=== PATIENT | female | born 1995 | race Caucasian/White ===

== ENCOUNTER 2022-01-28 14:27 | Observation (INO) | payer OTHER, SELFPAY ==
[2022-01-28] VITALS (8 sets, daily range): BP systolic 115–123; BP diastolic 61–62; PULSE 74–91; TEMP 36.8; O2SAT 98–99; BMI 34.5
--- NOTE | 2022-01-28 14:55 | OBADM ---
This patient, Nneka A Case, admitted to the [facility] for observation. Patient/family oriented to hospital policies and general routines including ID bracelet, bed and alarms, visiting hours, pain management, procedures, bathroom and other care routines, personal items, smoking policy, room service/diet, and visiting hours. Patient/Family are encouraged to report perceived risks to care and to ask questions if they do not understand what they are told or what they should do.
[2022-01-28 15:32] LABS: Appearance Urine Clear (Clear); Bilirubin Urine Negative (Negative); Blood Urine Negative (Negative); Color Urine Yellow (Yellow); Glucose Urine UA Negative (Negative); Ketones Urine Negative (Negative); Leukocyte Esterase Ur Negative LEU/UL (Negative); Nitrate Urine Negative (Negative); Protein Urine Negative (Negative); Specific Grav Ur 1.015 (1.001-1.035); Urobilinogen Urine 0.2 mg/dL (<2.0)
[2022-01-28 15:50] LABS: Add Urine Microscopic? NO
--- NOTE | 2022-01-31 13:38 | P.PNOB_ITS ---
OB - Triage/Final Diagnosis Visit Information Reason for evaluation: threatened labor Comments/Additional reasons for admission: I have assessed the risk for this patient, Nneka A Case, and determined that she would benefit from observation care. Evaluation Laboratory results: Laboratory Tests 01/28/22 15:25 Urine Color Yellow Urine Appearance Clear Urine pH 7.0 Ur Specific [place] 1.015 Urine Protein Negative Urine Glucose (UA) Negative Urine Ketones Negative Ur Blood (Man) Negative Urine Nitrate Negative Urine Bilirubin Negative Urine Urobilinogen 0.2 Leukocyte Esterase Rfl Negative
== END 2022-01-28 17:05 | disposition home or self-care (01) ==
PROVIDERS: Admitting Provider Obstetrics & Gynecology; PCP Hospitalist; Visit Provider Obstetrics & Gynecology
DX: O47.02 False labor before 37 completed weeks of gestation, second trimester (principal); Z3A.20 20 weeks gestation of pregnancy
CPT/HCPCS: 81003; G0378; G0379

== ENCOUNTER 2022-04-29 11:21 | Outpatient (RCR) | payer OTHER, SELFPAY ==
[2022-04-29 12:13] VITALS: PULSE 95
== END 2022-07-28 23:59 | disposition home or self-care (01) ==
LOC: ANHOBOP 11:21
PROVIDERS: PCP Hospitalist; Visit Provider Obstetrics & Gynecology
DX: O36.8130 Decreased fetal movements, third trimester, not applicable or unspecified (principal); Z3A.33 33 weeks gestation of pregnancy
CPT/HCPCS: 59025

== ENCOUNTER 2022-05-23 13:02 | Observation (INO) | payer OTHER, SELFPAY ==
[2022-05-23 13:25] VITALS: BMI 38.0
--- NOTE | 2022-05-23 13:25 | OBADM ---
This patient, Nneka A Case, admitted to the OB room 115 for observation for cramping and back pain. Patient/family oriented to hospital policies and general routines including ID bracelet, bed and alarms, visiting hours, pain management, procedures, bathroom and other care routines, personal items, smoking policy, room service/diet, and visiting hours. Patient/Family are encouraged to report perceived risks to care and to ask questions if they do not understand what they are told or what they should do. See OBIX for further documentation.
[2022-05-23 14:00] VITALS: TEMP 36.4
--- NOTE | 2022-05-25 09:25 | PM.OBTRLD ---
OB - Triage/Final Diagnosis Visit Information Reason for evaluation: threatened labor Comments/Additional reasons for admission: I have assessed the risk for this patient, Nneka A Case, and determined that she would benefit from observation care.
== END 2022-05-23 14:36 | disposition home or self-care (01) ==
LOC: ANHOBPP 14:31 → ANHLDR 14:40
PROVIDERS: Admitting Provider Obstetrics & Gynecology; PCP Hospitalist; Visit Provider Obstetrics & Gynecology
DX: O47.03 False labor before 37 completed weeks of gestation, third trimester (principal); Z3A.36 36 weeks gestation of pregnancy
CPT/HCPCS: G0378; G0379

== ENCOUNTER 2022-06-07 03:08 | Inpatient (IN) | payer OTHER, SELFPAY ==
[2022-06-07] VITALS (197 sets, daily range): BP systolic 66–177; BP diastolic 20–147; PULSE 32–131; RESP 16; TEMP 36.2–36.9; O2SAT 89–100; BMI 38.7
[2022-06-07 03:38] LABS: Basophils Percent Auto 0.3 % (0.2-1.2); Eosinophils Absolute Auto 0.1 K/mm3 (0-0.3); Eosinophils Percent Auto 0.7 % (0-4.4); Hematocrit 33.7 % (37.0-47.0); Hemoglobin 11.3 g/dL (12.0-15.0); Immature Granulocyte Absolute 0.04 K/mm3 (0.00-0.031); Immature Granulocyte Percent A 0.4 % (0-0.5); Lymphocytes Absolute Auto 2.04 K/mm3 (0.9-3.2); Lymphocytes Percent Auto 18.2 % (18.3-44.2); Mean Corpuscular HGB Conc 33.5 g/dl (32-36); Mean Corpuscular Hemoglobin 28.8 pg (26-34); Mean Platelet Volume 10.3 fl (7.4-10.4); Monocytes Absolute Auto 0.8 K/mm3 (0.1-0.6); Monocytes Percent Auto 7.2 % (2.6-8.5); Neutrophils Absolute Auto 8.2 K/mm3 (1.3-6.7); Neutrophils Percent Auto 73.2 % (45.5-73.1); Platelet Count Result 256 k/mm3 (150-375); Red Blood Count 3.92 M/mm3 (4.2-5.4); Red Cell Distribution Width 13.1 % (11.5-14.5); White Blood Count 11.2 K/mm3 (4.5-10.0)
[2022-06-07] MEDS: LACTATED RINGERS 1,000 ML 125 ML IV CONT ×4 (03:53→12:15)
[2022-06-07] MEDS: OXYTOCIN 30 UNITS/NS 500 ML 30 UNITS/500 ML BAG 6 UNITS IV CONT (04:30)
--- NOTE | 2022-06-07 06:35 | PM.IMHP ---
H&P: HPI History of Present Illness Date/Time: 06/07/22 06:35 Chief Complaint: Labor Narrative: this is a 27-year-old 1 para 0 whose EDC is 06/14/2022 by last menstrual. Who is admitted with active labor. Her has been uncomplicated thus far. She is negative for group B strep PMFSH Family History Family History Mother Hypertension Social History Social History Smoking status: Never smoker Substance use: never Lack of Transportation: No Lack of Food: Never True Current Housing: I Have Housing Concerned About Future Housing: No Difficulty Paying Gas/Electric Bills: No Difficulty Paying for Meds: No Currently Unemployed: No Education: Associate Degree Difficulty w/ Childcare or Family Care: No Spiritual care concerns: No Meds Home Medications and Allergies Home Medications Medication Instructions Recorded Confirmed Type vit no.95-ferrous 1 tablet PO DAILY 01/28/22 06/07/22 History fumarate 28 mg-folic acid 800 mcg tablet () famotidine 20 mg tablet (Pepcid) 20 mg PO DAILY 05/23/22 06/07/22 History Allergies Allergy/AdvReac Type Severity Reaction Status Date / Time No Known Allergies Allergy Verified 06/07/22 03:45 Vital Signs Vital Signs - 24 hr 06/07/22 03:20 06/07/22 04:01 06/07/22 04:06 Pulse Rate 97 Blood Pressure 132/88 Pulse Oximetry 100 100 99 06/07/22 04:11 06/07/22 04:16 06/07/22 04:20 Pulse Rate Blood Pressure Pulse Oximetry 100 99 99 06/07/22 04:25 06/07/22 04:34 06/07/22 04:35 Pulse Rate 78 Blood Pressure 123/86 Pulse Oximetry 100 100 06/07/22 04:39 06/07/22 04:44 06/07/22 04:49 Pulse Rate Blood Pressure Pulse Oximetry 100 100 100 06/07/22 04:54 06/07/22 04:59 06/07/22 05:01 Pulse Rate 84 Blood Pressure 127/70 Pulse Oximetry 99 100 06/07/22 05:04 06/07/22 05:15 06/07/22 05:20 Pulse Rate Blood Pressure Pulse Oximetry 100 100 100 06/07/22 05:25 06/07/22 05:30 06/07/22 05:31 Pulse Rate 79 Blood Pressure 123/76 Pulse Oximetry 100 100 06/07/22 05:35 06/07/22 05:40 06/07/22 05:45 Pulse Rate Blood Pressure Pulse Oximetry 100 100 100 06/07/22 05:50 06/07/22 05:55 06/07/22 06:00 Pulse Rate Blood Pressure Pulse Oximetry 99 100 98 06/07/22 06:01 06/07/22 06:05 06/07/22 06:10 Pulse Rate 82 Blood Pressure 125/80 Pulse Oximetry 100 100 06/07/22 06:15 06/07/22 06:20 06/07/22 06:23 Pulse Rate Blood Pressure Pulse Oximetry 100 100 100 06/07/22 06:24 06/07/22 06:29 Pulse Rate Blood Pressure Pulse Oximetry 100 100 Exam Const: General: cooperative, healthy appearing, comfortable and well groomed Orientation/consciousness: oriented to person, oriented to place and oriented to time HENMT: Head: normal to inspection Resp: Effort & Inspection: normal respiratory effort Cardio: Rate: regular rate Rhythm: regular rhythm Heart sounds: S1 normal heart sound present and S2 normal heart sound present GI: Inspection: normal to inspection ( soft gravid uterus with contractions every 3minutes) : External Female Exam: normal external appearance Speculum Exam - Vagina: normal appearance of the vagina Speculum Exam - Cervix: normal appearance of the cervix ( cervix 3/90/2. AROM clear. FHTs reassuring) H&P: Results Labs Labs: Short CBC 06/07/22 Range/Units 03:21 WBC 11.2 H (4.5-10.0) K/mm3 Hgb 11.3 L (12.0-15.0) g/dL Hct 33.7 L (37.0-47.0) % Plt Count 256 (150-375) k/mm3 Assessment and Plan Assessment and plan (1) Term : Code(s): Z34.90 - Encounter for supervision of normal , unspecified, unspecified trimester Status: Acute Plan spontaneous vaginal delivery expected. She has an epidural candidate
[2022-06-07] MEDS: fentaNYL CITRATE INJ (*CRX) 100 MCG/2 ML VIAL 50 MCG IV PUSH (07:26)
[2022-06-07] MEDS: PHENYLEPHRINE 1,000 MCG/10 ML SYRINGE 100 MCG IV PUSH (07:58)
--- NOTE | 2022-06-07 08:07 | WPDANESEPPF ---
Anes - Initial Pre Proc Eval Date/Time: 06/07/22 08:07 Surgeon: Cain Larson MD Pre Op Diagnosis: Labor Patient Data Age: 27 Gender: F Height: 1.68 m Weight: 109 kg Last Vital Signs Pulse 70 06/07/22 08:07 BP 102/67 06/07/22 08:07 Pulse Ox 98 06/07/22 08:07 Allergies Allergy/AdvReac Type Severity Reaction Status Date / Time No Known Allergies Allergy Verified 06/07/22 03:45 Home Medications Medication Instructions Recorded Confirmed Type vit no.95-ferrous 1 tablet PO DAILY 01/28/22 06/07/22 History fumarate 28 mg-folic acid 800 mcg tablet () famotidine 20 mg tablet (Pepcid) 20 mg PO DAILY 05/23/22 06/07/22 History Laboratory Tests 06/07/22 06/07/22 06/07/22 03:21 03:21 03:21 WBC 11.2 K/mm3 H K/mm3 (4.5-10.0) RBC 3.92 M/mm3 L M/mm3 (4.2-5.4) Hgb 11.3 g/dL L g/dL (12.0-15.0) Hct 33.7 % L % (37.0-47.0) MCV 86.0 fl fl (80-100) MCH 28.8 pg pg (26-34) MCHC 33.5 g/dl g/dl (32-36) RDW 13.1 % % (11.5-14.5) Plt Count 256 k/mm3 k/mm3 (150-375) MPV 10.3 fl fl (7.4-10.4) Immature Gran % (Auto) 0.4 % % (0-0.5) Neut % (Auto) 73.2 % H % (45.5-73.1) Lymph % (Auto) 18.2 % L % (18.3-44.2) Harrison % (Auto) 7.2 % % (2.6-8.5) Eos % (Auto) 0.7 % % (0-4.4) Baso % (Auto) 0.3 % % (0.2-1.2) Lymph # (Auto) 2.04 K/mm3 K/mm3 (0.9-3.2) Harrison # (Auto) 0.8 K/mm3 H K/mm3 (0.1-0.6) Eos # (Auto) 0.1 K/mm3 K/mm3 (0-0.3) Baso # (Auto) 0.0 K/mm3 K/mm3 (0.0-0.1) Abs Immat Gran (auto) 0.04 K/mm3 H K/mm3 (0.00-0.031) Absolute Neuts (auto) 8.2 K/mm3 H K/mm3 (1.3-6.7) Absolute Nucleated RBC 0.0 K/mm3 K/mm3 (0.0-0.012) Nucleated RBC % 0.0 % % (0.0-0.2) RPR Pending Blood Type B Positive Antibody Screen Negative Patient hx anesthesia problems: none Family hx anesthesia problems: none Results Review: All pre-operative results and documents have been reviewed as part of the pre-operative evaluation. PMFSH Family History Family History Mother Hypertension Social History Social History Smoking status: Never smoker Substance use: never Lack of Transportation: No Lack of Food: Never True Current Housing: I Have Housing Concerned About Future Housing: No Difficulty Paying Gas/Electric Bills: No Difficulty Paying for Meds: No Currently Unemployed: No Education: Associate Degree Difficulty w/ Childcare or Family Care: No Spiritual care concerns: No Anes - Eval Final PreProcedure Day of Procedure 06/07/22 08:07 Patient weight: obese Neurological: alert and oriented Emergent: no Anesthetic plan: proceed Anesthesia type and monitoring: regional epidural and standard monitoring Results Review: All pre-operative results and documents have been reviewed as part of the pre-operative evaluation. Informed Consent: The patient's anesthetic plan and its attendant risks and benefits were discussed with the patient/family/POA. Questions were solicited and answers provided to the satisfaction of the patient/family/POA.
[2022-06-07] MEDS: ePHEDrine sulfate INJ 50 MG/ML AMPUL IV PUSH (08:13)
--- NOTE | 2022-06-07 12:02 | PM.OBPNLAB ---
Pain Control Date/time seen: 06/07/22 12:02 Pain control: tolerating well and epidural Pelvic Exam Dilation (cm): 7 Effacement (%): 100 station: -2 Amniotic membrane status: Leaking Contractions Monitor mode: Internal Contraction frequency: 3
--- NOTE | 2022-06-07 14:24 | PM.OBPNLAB ---
Pain Control Date/time seen: 06/07/22 14:24 Pain control: tolerating well and epidural Pelvic Exam Dilation (cm): 10 Effacement (%): 100 station: -2 Amniotic membrane status: Leaking Contractions Monitor mode: Internal Contraction frequency: 3
[2022-06-07 15:56] LABS: Rapid Plasma Reagin Non-Reactive (NonReactive)
--- NOTE | 2022-06-07 16:14 | PM.OBPRVD ---
OB - Delivery Note Procedure Delivery date: 06/07/22 Events: Elective Induction of Labor Induction method: AROM Delivery monitor: External FHT and Internal Uterine Route of delivery: Episiotomy description: None Laceration Description: Perineal - 2nd Degree Delivery repair: vicryl Specimen: No Quantitative Blood Loss (ml): 160 Anesthesia type: Epidural Disposition: Floor [place] Baby Date of : 06/07/22 Time of : 16:00 Weeks of gestation at delivery: 39 gender: Female presentation: vertex position: Right Occiput Anterior Placenta delivery description: Spontaneous Cord Vessel Description: 3 Vessels, Nuchal Cord, Loose and Delayed Cord Clamping score one minute: 9 score five minutes: 9
[2022-06-07] MEDS: OXYTOCIN 30 UNITS/NS 500 ML 30 UNITS/500 ML BAG 125 UNITS IV CONT (16:32)
[2022-06-07] MEDS: WITCH HAZEL 40 PADS 1 PAD TOPICAL (18:45)
[2022-06-07] MEDS: BENZOCAINE 20% AER SPR (*SP) 56 GM CAN 1 SPRAY TOPICAL (18:45)
[2022-06-07] MEDS: ACETAMINOPHEN 325 MG TABLET 650 MG PO (20:14)
[2022-06-08] MEDS: ACETAMINOPHEN 325 MG TABLET 650 MG PO ×3 (05:16→22:17)
[2022-06-08] MEDS: IBUPROFEN 600 MG TABLET PO ×3 (05:16→22:17)
[2022-06-08 05:28] LABS: Hematocrit 30.1 % (37.0-47.0); Hemoglobin 9.7 g/dL (12.0-15.0)
--- NOTE | 2022-06-08 07:07 | P.PNOB_ITS ---
OB - PN: Subj Subjective Date/time seen: 06/08/22 07:07 Patient comments: no complaints and pain well controlled baby status: doing well OB - PN: Obj Data Labs 06/08/22 05:12 Labs: Laboratory Results - last 24 hr 06/07/22 06/08/22 03:21 05:12 Hgb 9.7 L Hct 30.1 L RPR Non-reactive OB - PN A/P Plan day: 1 Plan: routine care Time Spent With Patient Time: Total time spent is greater than 50% in coordination of care (as documented) at patient's floor/unit and/or counseling patient: Time with patient: less than 15 minutes Exam Const: General: cooperative, healthy appearing and comfortable Nutritional Appearance: average body habitus Orientation/consciousness: oriented to person, oriented to place and oriented to time Resp: Effort & Inspection: normal respiratory effort Cardio: Rate: regular rate Rhythm: regular rhythm Heart sounds: S1 no rmal heart sound present and S2 normal heart sound present GI: Inspection: normal to inspection
[2022-06-08 08:00] VITALS: BP 110/68; PULSE 79; RESP 16; TEMP 36.9; O2SAT 99
[2022-06-08] MEDS: MULTIVIT/MIN/PREN/FOL AC/IRON TABLET 1 TAB PO (09:02)
[2022-06-08] MEDS: DOCUSATE SODIUM 100 MG CAPSULE PO ×2 (09:02→16:27)
[2022-06-08] MEDS: POLYSACCHARIDE IRON COMPLEX 150 MG CAPSULE PO ×2 (09:48→16:27)
[2022-06-08 12:14] VITALS: BP 120/75; PULSE 85; RESP 16; TEMP 37; O2SAT 97
--- NOTE | 2022-06-08 15:00 | PM.DS ---
DS: Admitting Diagnosis Discharge Date 06/09/2022 Admitting Diagnosis term DS: Discharge Diagnosis Discharge Diagnosis (1) Term : Code(s): Z34.90 - Encounter for supervision of normal , unspecified, unspecified trimester Status: Acute DS: Summary Hospital Course Reason for hospitalization: patient was admitted for induction of labor at term Hospital Course: she underwent successful spontaneous vaginal delivery with epidural anesthesia. Her hospital course was unremarkable. She room. She was voiding without difficulty, ambulating, breast-feeding, generally without complaints. Time Spent with Patient Time attestation: Total time spent providing and/or coordinating discharge services: Exam Const: General: cooperative, healthy appearing and comfortable Nutritional Appearance: average body habitus Orientation/consciousness: oriented to person, oriented to place and oriented to time Resp: Effort & Inspection: normal respiratory effort Cardio: Rate: regular rate Rhythm: regular rhythm Heart sounds: S1 normal heart sound present and S2 normal heart sound present GI: Inspection: normal to inspection DS: Data Data Completed and Pending Labs on day of discharge: Labs from last 24 hours 06/08/22 06/07/22 05:12 03:21 Hgb 9.7 L Hct 30.1 L RPR Non-reactive Discharge Plan Discharge Attending physician on discharge: Cain Johsnon Discharging Clinician: Cain Johnson Patient Disposition: Home, Self-Care Activity: may shower, no straining and pelvic rest Diet: heart healthy Wound Care Instructions: follow printed instructions Patient Instructions: Antibiotic Form Stand Alone Forms: General Discharge Information Follow-up/Referrals: Cain Johnson MD [Physician] - Discharge Medications: Continued PNV cmb#95-ferrous fumarate-FA [] 28 mg iron- 800 mcg Tablet 1 tablet PO DAILY famotidine [Pepcid] 20 mg Tablet 20 mg PO DAILY Date of admission: 06/07/22 03:08 Primary Care Provider: SonnyDerek Admitting Provider: Cain Johnson Attending physician on admission: Cain Johnson Condition: Stable
--- NOTE | 2022-06-08 17:30 | PC.NURSE ---
[id number] Introductions were made, then consulted with patient to assess needs related to . Mother led the conversation with her?plans to feed?her infant and the?experience so far. Resources provided for inpatient and outpatient services using a mom/baby guide. Mother verbalizes she is able to independently latch with appropriate positioning/alignment. She denies any nipple discomfort and is responsively . Infant is currently meeting outcomes for weight, output, jaundice and feeding frequencies of 8-12 times in 24 hours. Questions were answered and discussed. Mother declines any additional assistance/education at this time. Mother is encouraged to call for assistance if her doesn?t latch or there is discomfort with latching. Mother voiced understanding of information shared and mom and baby guide reviewed for additional resource information. Reported to the primary RN.
[2022-06-08 20:05] VITALS: BP 133/78; PULSE 85; RESP 18; TEMP 37; O2SAT 98
--- NOTE | 2022-06-09 07:15 | PM.OBPNVD ---
OB - PN: Subj Subjective Date/time seen: 06/09/22 07:15 Patient comments: no complaints and pain well controlled baby status: doing well OB - PN: Obj Data Labs 06/08/22 05:12 OB - PN A/P Plan day: 2 Plan: routine care, discharge home and follow up 6 weeks Time Spent With Patient Time: Total time spent is greater than 50% in coordination of care (as documented) at patient's floor/unit and/or counseling patient: Time with patient: less than 15 minutes Exam Const: General: cooperative, healthy appearing and comfortable Nutritional Appearance: average body habitus Orientation/consciousness: oriented to person, oriented to place and oriented to time HENMT: Head: normal to inspection Resp: Effort & Inspection: normal respiratory effort GI: Inspection: normal to inspection (fundus firm)
[2022-06-09 08:10] VITALS: BP 118/74; PULSE 80; RESP 18; TEMP 36.4; O2SAT 100
[2022-06-09] MEDS: ACETAMINOPHEN 325 MG TABLET 650 MG PO (09:23)
[2022-06-09] MEDS: IBUPROFEN 600 MG TABLET PO (09:24)
[2022-06-09] MEDS: POLYSACCHARIDE IRON COMPLEX 150 MG CAPSULE PO (09:24)
[2022-06-09] MEDS: MULTIVIT/MIN/PREN/FOL AC/IRON TABLET 1 TAB PO (09:24)
[2022-06-11 13:59] VITALS: BP 120/71; PULSE 70; RESP 20; TEMP 37; O2SAT 99
== END 2022-06-09 12:52 | disposition home or self-care (01) | DRG 807 ==
LOC: ANHLDR 03:11 → ANHOB2 19:43
PROVIDERS: Admitting Provider Obstetrics & Gynecology; PCP Hospitalist; Visit Provider Obstetrics & Gynecology
DX: O69.81X0 Labor and delivery complicated by cord around neck, without compression, not applicable or unspecified (principal); Z37.0 Single live birth; O70.1 Second degree perineal laceration during delivery; Z3A.39 39 weeks gestation of pregnancy
CPT/HCPCS: 36415; 85014; 85018; 85025; 86592; 86850; 86900; 86901; A9270; J2370; J2590; J2795; J3010; J7120

== ENCOUNTER 2023-04-17 00:17 | Emergency (ER) | payer SELFPAY ==
--- NOTE | ~2023-04-17 | XR_ITS ---
Clinical Indication: Chest pain PA and lateral views of the chest: Comparison: 06/21/2021 Findings: The lungs are clear, without evidence of focal consolidation or pleural effusion. Cardiome diastinal silhouette is within normal limits. Bones and soft tissues are unremarkable. Impression: Normal chest. Reviewed, dictated and finalized at location . HANGER Impression: Normal chest.
[2023-04-17 00:20] VITALS: BP 130/64; PULSE 65; RESP 20; TEMP 37.1; O2SAT 100
--- NOTE | 2023-04-17 00:20 | ECG_ITS ---
Measurements Intervals [place] Rate: 65 P: 60 WY: 162 QRS: 85 QRSD: 82 T: 49 QT: 380 QTc: 395 Interpretive Statements SINUS RHYTHM WITH SINUS ARRHYTHMIA NORMAL ECG NO PREVIOUS ECG AVAILABLE FOR COMPARISON Electronically Signed On 04-17-2023 6:53:01 [employer] by Adis Delgado D.O.
[2023-04-17 00:37] LABS: Basophils Percent Auto 0.3 % (0.2-1.2); Eosinophils Absolute Auto 0.2 K/mm3 (0-0.3); Eosinophils Percent Auto 1.7 % (0-4.4); Hematocrit 42.4 % (37.0-47.0); Hemoglobin 13.8 g/dL (12.0-15.0); Immature Granulocyte Absolute 0.03 K/mm3 (0.00-0.031); Immature Granulocyte Percent A 0.3 % (0-0.5); Lymphocytes Absolute Auto 1.84 K/mm3 (0.9-3.2); Mean Corpuscular HGB Conc 32.5 g/dl (32-36); Mean Corpuscular Hemoglobin 30.3 pg (26-34); Mean Platelet Volume 10.5 fl (7.4-10.4); Monocytes Absolute Auto 0.7 K/mm3 (0.1-0.6); Monocytes Percent Auto 7.2 % (2.6-8.5); Neutrophils Absolute Auto 6.5 K/mm3 (1.3-6.7); Neutrophils Percent Auto 70.5 % (45.5-73.1); Platelet Count Result 222 k/mm3 (150-375); Red Blood Count 4.56 M/mm3 (4.2-5.4); White Blood Count 9.2 K/mm3 (4.5-10.0)
[2023-04-17 00:48] LABS: Alanine Aminotransferase 22 U/L (6-35); Albumin Level 4.1 g/dL (3.5-5.1); Alkaline Phosphatase 53 U/L (38-126); Anion Gap 4 mmol/L (8-16); Aspartate Amino Transferase 29 U/L (14-36); Bilirubin,Total 0.5 mg/dL (0.2-1.3); Blood Urea Nitrogen 19 mg/dL (7-17); Calcium 9.2 mg/dL (8.4-10.2); Carbon Dioxide 30 mmol/L (22-30); Chloride 105 mmol/L (98-107); Estimated Glomerular Filt Rate > 60; Glucose 97 mg/dL (65-110); Lipase 106 U/L (23-300); Potassium 3.6 mmol/L (3.4-5.0); Sodium 139 mmol/L (137-145)
[2023-04-17 00:52] LABS: Prothrombin Time 13.8 Seconds (11.1-14.7)
[2023-04-17 00:54] LABS: Partial Thromboplastin Time 33.5 SECONDS (22.3-36.8)
[2023-04-17 01:00] LABS: Troponin I < 0.012 ng/mL (0.000-0.034)
--- NOTE | 2023-04-17 02:02 | PC.NURSE ---
pt. to desk stating they are going home. pt. NAD upon departure.
== END 2023-04-17 02:46 | disposition left against medical advice (07) ==
PROVIDERS: Emergency Provider Emergency Medicine; PCP Hospitalist
DX: R07.2 Precordial pain (principal)
CPT/HCPCS: 36415; 71046; 80053; 83690; 84484; 85025; 85610; 85730; 93005; 99199

== ENCOUNTER 2024-02-12 10:20 | Outpatient (CLI) | payer OTHER, SELFPAY ==
--- NOTE | ~2024-02-12 | XR_ITS ---
Clinical Indication: Cough PA and lateral views of the chest: Comparison: 04/29/2023 Findings: The lungs are clear, without evidence of focal consolidation or pleural effusion. Cardiome diastinal silhouette is within normal limits. Bones and soft tissues are unremarkable. Impression: Normal chest. Reviewed, dictated and finalized at location . Impression: Normal chest.
== END 2024-02-12 10:21 | disposition home or self-care (01) ==
LOC: ANHIMG 10:27
PROVIDERS: PCP Hospitalist; Visit Provider Internal Medicine
DX: R05.3 Chronic cough (principal)
CPT/HCPCS: 71046

== ENCOUNTER 2024-02-14 10:19 | Outpatient (CLI) | payer OTHER, SELFPAY ==
[2024-02-14 10:39] LABS: Hematocrit 43.4 % (37.0-47.0); Hemoglobin 14.8 g/dL (12.0-15.0); Mean Corpuscular HGB Conc 34.1 g/dl (32-36); Mean Corpuscular Hemoglobin 32.5 pg (26-34); Mean Corpuscular Volume 95.4 fl (80-100); Mean Platelet Volume 9.6 fl (7.4-10.4); Platelet Count Result 204 k/mm3 (150-375); Red Blood Count 4.55 M/mm3 (4.2-5.4); Red Cell Distribution Width 12.3 % (11.5-14.5)
[2024-02-14 10:51] LABS: Albumin Level 4.2 g/dL (3.5-5.1); Anion Gap 10 mmol/L (4-12); Blood Urea Nitrogen 17 mg/dL (7-17); Calcium 9.1 mg/dL (8.4-10.2); Carbon Dioxide 28 mmol/L (22-30); Chloride 100 mmol/L (98-107); Estimated Glomerular Filt Rate > 60; Glucose 87 mg/dL (65-110); Potassium 4.3 mmol/L (3.4-5.0); Sodium 138 mmol/L (137-145)
[2024-02-14 11:00] LABS: Prealbumin 24.4 mg/dL (17.6-36.0)
[2024-02-14 11:05] LABS: Iron 81 ug/dL (37-170)
[2024-02-17 11:49] LABS: Vitamin B1 16 nmol/L (8-30)
== END 2024-02-14 10:20 | disposition home or self-care (01) ==
LOC: ANHLAB 10:21
PROVIDERS: PCP Hospitalist; Visit Provider Surgery Plastic and Reconstructive Surgery
DX: R63.4 Abnormal weight loss (principal)
CPT/HCPCS: 36415; 80048; 82040; 83540; 84134; 84425; 85027

== ENCOUNTER 2024-02-25 00:46 | Day surgery (SDC) | payer OTHER, SELFPAY ==
[2024-02-17 10:29] VITALS: BMI 26.6
--- NOTE | 2024-02-17 10:30 | PC.NURSE ---
Report to the Outpatient Waiting Room, entrance under the green pavilion located off [facility], at time _0700_ on date _[id number]_. Planned Procedure Time: _0900_.? Time changes happen often and if your time is changed the preop area will call you the afternoon before. - You and your visitor will be asked to self-screen and do not enter if you have any COVID symptoms. Please call surgeon if you need to reschedule. - A mask is optional within the hospital at this time. Patients may have clear liquids (water, carbonated beverages, clear teas, apple juice) until 3 hours prior to surgery with a maximum of 20 ounces. - No food from midnight until time of surgery and no smoking Take only the following medications with a SIP of water on the morning of surgery: None DO NOT STOP ANY OF YOUR OTHER PRESCRIPTION MEDICATIONS PRIOR TO SURGERY EXCEPT THE FOLLOWING Medications to discontinue per physician ____None Please no make-up, nail welsh, hairspray, perfume, deodorant, or body powder the day of surgery.? No jewelry (including any body piercings) or valuables the day of surgery, leave them at home.? Please take a shower or bath the night before, or the morning of, surgery with an antibacterial soap.? Wear comfortable, loose fitting clothing.? - Jewelry must be removed prior to entering the operating room.? Rings and piercings that are not removed may be cut off. - The hospital will not accept responsibility for valuables.? - Please leave all valuables, including medications, at home the day of surgery. If you are going home after surgery, a licensed bulk delivery driver must drive you home.? - NO public transportation without another adult if you receive anesthesia. - We recommend that an adult stay with you for 24 hours following discharge. - We also recommend that you do not drive, make important decision, drink alcoholic beverages, or take any drugs that were not prescribed by your health care provider for at least 24 hours after your discharge time. Follow any additional instructions given to you from your surgeon. Telephone instructions given to __Patricia___and asked if any additional questions and then verbalized understanding. Patient advised to call surgeon office or pre surgery nurse liaison [phone] if any additional questions.
[2024-02-25] VITALS (10 sets, daily range): BP systolic 105–125; BP diastolic 59–80; PULSE 50–97; RESP 13–20; TEMP 36.1–36.8; O2SAT 92–100
[2024-02-25] MEDS: LACTATED RINGERS 1,000 ML 30 ML IV CONT ×3 (08:02→12:40)
[2024-02-25 08:28] LABS: BEDSIDEPREGUCG Negative (Negative)
--- NOTE | 2024-02-25 08:39 | WPDHPUPDATE1 ---
History and Physical Update Update Date/Time: 02/25/24 08:39 History and Physical has been reviewed, including an updated exam of the patient. There are NO changes in the patient's condition. Risks, benefits, and alternatives have been discussed and questions answered. Patient agrees to proceed with procedure.
--- NOTE | 2024-02-25 09:02 | P.PNAN_ITS ---
Anes - Eval Pre Procedure Procedure: Operation Date: 02/25/24 09:00 Proposed Procedures p Bilateral Breast Mastopexy with GalaFlex - Gunnar Manzanares MD Date/Time: 02/25/24 09:02 Pre Op Diagnosis: breast ptosis Patient Data Age: 28 Gender: F Height: 1.7 m Weight: 77.3 kg Last Vital Signs Temp 36.1 C L 02/25/24 08:00 Pulse 78 02/25/24 08:00 Resp 16 02/25/24 08:00 BP 125/73 02/25/24 08:00 Pulse Ox 97 02/25/24 08:00 O2 Del Method Room Air 02/25/24 08:00 Allergies Allergy/AdvReac Type Severity Reaction Status Date / Time No Known Allergies Allergy Verified 02/25/24 08:19 Home Medications Medication Instructions Recorded Confirmed Type No Home Medications 02/17/24 02/25/24 History Laboratory Tests 02/25/24 08:00 POC Urine HCG, Qual Negative (Negative) : patient denies Patient hx anesthesia problems: none Family hx anesthesia problems: none Results Review: All pre-operative results and documents have been reviewed as part of the pre- operative evaluation. PMFSH Family History Family History Mother Hypertension Social History Social History Smoking status: Never smoker Alcohol intake: current Substance use: never Lack of Transportation: No Lack of Food: Never True Current Housing: I Have Housing Concerned About Future Housing: No Difficulty Paying Gas/Electric Bills: No Difficulty Paying for Meds: No Currently Unemployed: No Education: Associate Degree Difficulty w/ Childcare or Family Care: No Living arrangements: with family Spiritual care concerns: No Exam Day of Procedure 02/25/24 09:02 Patient weight: normal Heart: regular rate and rhythm Lungs: clear to auscultation Airway: Mallampati scale class 1 Neurological: alert and oriented
--- NOTE | 2024-02-25 09:04 | P.OP_ITS ---
Procedure Note - Detailed Date of Procedure 02/25/24 Pre-op Diagnosis breast ptosis Post-op Diagnosis Same Procedure Performed Bilateral Mastopexy with Galaflex Surgeon Gunnar Manzanares MD Anesthesia General Findings Inverted T Superior medial pedicle Galaflex REF# [id number] Lot# [id number] Description of Procedure She is here today for bilateral breast mastopexy. Previously and again today the risks, benefits, alternatives were discussed in extensive detail. I wanted her to be very realistic about the risks involved as well as expectations. She understands how her history of hidradentis could complicate this which was outlined in detail. She states she is willing to accept these risks and would like to proceed. We discussed aftercare and what to monitor for. Made sure answered all of her questions to her satisfaction today and consent was obtained. Marked in the preoperative holding area with their verification. The patient was taken to the operating room placed supine on the operating table. Anesthesia was provided by anesthesiology. A surgical time-out was taken. She was prepped and draped in a standard sterile fashion. Eleven blade was utilized to make a stab incision and infiltrated with low volume tumescent solution. The breast was tailor tacked into place. I tailor tacked the breast into position. Placed her in a sitting position. Verified the nipple-areolar location based on preoperative planning as well as intraoperative observations and measurements in full agreement. She was placed supine. I de-epithelialized the pedicle. I then de-epithelialized the inferior breast tissue to create an autoaugmentation flap based on intercostal district administrative assistant. I elevated medial and lateral tissue flaps as well for planned closure. The autoaugmentation flap was sutured to the chest wall with 2-0 PDS. Galaflex was soaking in a betadine solution on the back table. Trimmed and sutured into place with 2-0 Vicryl. I closed along the IMF with 2-0 Stratafix. Along the vertical with 2-0 PDS. I closed around the Michael with 3-0 strata fix. 3-0 Monocryl along the vertical. 3-0 Stratafix along the IMF. I finally closed everything with running subcuticular 4-0 Monocryl and tissue glue. Fluffs and surgical bra were placed. Estimated Blood Loss 50 Drains No Packing No Pathology None sent Complications No immediate complications Condition Stable Disposition PACU
[2024-02-25] MEDS: SCOPOLAMINE 1 MG PATCH 1 PATCH TRANSDERM (09:30)
[2024-02-25] MEDS: LACTATED RINGERS IRRIG 1,000 ML, LIDOCAINE HCL 1% LOCAL INJ 50 ML, EPINEPHrine HCL INJ ... INFILTRATE (09:41)
[2024-02-25] MEDS: NACL 0.9% IRRIG POUR BOTTLE 900 ML, GENTAMICIN SULFATE INJ 160 MG, ceFAZolin 2 GM, POVI... IRRIGATION (09:41)
[2024-02-25] MEDS: ceFAZolin 2 GM/D5W 50 ML 2 GM/50 ML BAG IVPB (09:41)
[2024-02-25] MEDS: TRANEXAMIC ACID 1,000MG/ISO100 1,000 MG/100 ML BAG 200 MG IVPB (09:41)
[2024-02-25 10:34] LABS: Urine Cotinine NEGATIVE
[2024-02-25] MEDS: fentaNYL CITRATE INJ (*CRX) 100 MCG/2 ML VIAL 25 MCG IV PUSH (13:36)
[2024-02-25] MEDS: oxyCODONE HCL (*CRX) 5 MG TAB IR PO (14:05)
== END 2024-02-25 14:57 | disposition home or self-care (01) ==
PROVIDERS: PCP Hospitalist; Visit Provider Surgery Plastic and Reconstructive Surgery
PROC: (CPT 19316; principal; 2024-02-25 09:00)
DX: Z41.1 Encounter for cosmetic surgery (principal); N64.81 Ptosis of breast
CPT/HCPCS: 19316; 15777 ×2; 80307; A9270; J0171; J0330; J0690; J1100; J1170; J1200; J1580; J2250; J2405; J2704; J3010; J7120

== ENCOUNTER 2024-03-31 08:31 | Emergency (ER) | payer OTHER, SELFPAY ==
--- NOTE | 2024-03-31 08:34 | ED.SKABFB ---
HPI - Skin/Abscess/Foreign Bdy General Chief complaint: Skin/Abscess/Foreign Body Stated complaint: Abcess Time Seen by Provider: 03/31/24 08:33 Source: patient Mode of arrival: ambulatory Limitations: no limitations History of Present Illness HPI narrative: Nneka is a 29-year-old female patient presenting to the clinic today with complaints of a possible abscess in between her breast. She reports she has a history of hidradenitis. Thinks that she is having hidradenitis flare. States symptoms started 1 week ago. Has tried to use topical clindamycin gel with mild relief. Clindamycin prescription is 3 years old. States that the area looked like it was going to drain but has not started draining yet. Has also tried putting Pred on it to get it to come to a head and drain. Denies any fever, chills, or body aches. Related Data Allergies Allergy/AdvReac Type Severity Reaction Status Date / Time No Known Allergies Allergy Verified 03/31/24 08:37 Review of Systems Review of Systems: Pertinent positives per HPI. Patient denies any fever, chills, rash, headache, visual changes, dizziness, cough, runny nose, sore throat, shortness of breath, chest pain, palpitations, nausea, vomiting, diarrhea, constipation, abdominal pain, or any urinary issues. PMFSH Family History Family History Mother Hypertension Social History Social History Smoking status: Never smoker Alcohol intake: current Substance use: never Lack of Transportation: No Lack of Food: Never True Current Housing: I Have Housing Concerned About Future Housing: No Difficulty Paying Gas/Electric Bills: No Difficulty Paying for Meds: No Currently Unemployed: No Education: Associate Degree Difficulty w/ Childcare or Family Care: No Living arrangements: with family Spiritual care concerns: No Comments At the time of my signature, I reviewed and agree with the nursing past medical, surgical, social, and family history. There is no relevant family history pertinent to the patient complaint. Exam Narrative: General: Well-developed, well nourished, in no apparent distress Head: Normocephalic, atraumatic. Cardio: Regular rate and rhythm, s1 and s2 normal, no murmur appreciated. Resp: Clear to auscultation bilaterally, no rhonchi, rales, wheezing or rubs. Integumentary: [place], warm, and dry, hidradenitis to the right medial chest wall/breast-red, mild swelling, and tenderness to palpation with mild fluctuance. No obvious drainage Course Course Emergency Course: Portions of this record may have been created with voice recognition software. Level of Care: Express Care Visit Vital Signs Vital signs: Vital Signs Temperature 36.4 C 03/31/24 08:37 Pulse Rate 78 03/31/24 08:37 Respiratory Rate 16 03/31/24 08:37 Blood Pressure 99/50 L 03/31/24 08:37 Pulse Oximetry 100 03/31/24 08:37 Temperature 36.4 C 03/31/24 08:37 Pulse Rate 78 03/31/24 08:37 Respiratory Rate 16 03/31/24 08:37 Blood Pressure 99/50 L 03/31/24 08:37 Pulse Oximetry 100 03/31/24 08:37 Vital signs reviewed MDM - Skin/Abscess/Foreign Bdy MDM Narrative Medical decision making narrative: At the time of visit patient is resting comfortably on the exam table. Patient appears to be nontoxic. Plan: Offered to drain hidradenitis in the clinic today and patient declined. Will place the patient on doxycycline and give her refill of her clindamycin gel as her prescription is . Supportive measures were discussed with the patient and they voiced understanding discharge instructions and agrees to treatment plan. Return precautions reviewed Differential Diagnosis Differential diagnosis: Likely abscess of skin or subcutaneous tissue, cellulitis and other (Hydrinites) Discharge Plan Discharge Clinical Impression
[2024-03-31 08:37] VITALS: BP 99/50; PULSE 78; RESP 16; TEMP 36.4; O2SAT 100
== END 2024-03-31 08:52 | disposition home or self-care (01) ==
PROVIDERS: Emergency Provider Nurse Practitioner Family
DX: L73.2 Hidradenitis suppurativa (principal)
CPT/HCPCS: 99213; G0463